=== PATIENT | male | born 1955 | race Caucasian/White ===

== ENCOUNTER 2020-10-10 11:54 | Day surgery (SDC) | payer OTHER ==
[2020-10-10] MEDS ORDERED: Propofol 200 MG/20 ML SDV ONE ×2 (13:41→14:35)
[2020-10-10] MEDS ORDERED: fentaNYL 100 MCG/2 ML SDV ONE (13:41)
[2020-10-10] MEDS ORDERED: Midazolam 1 MG/ML 2 ML SDV ONE (13:41)
[2020-10-10] MEDS ORDERED: Sodium Chloride 0.9% 20 ML ONE (14:07)
[2020-10-10] MEDS ORDERED: ceFAZolin 1 GM Vial ONE (14:07)
[2020-10-10] MEDS ORDERED: Iopamidol 408 MG/ML 20 ML SDV ONE (14:38)
[2020-10-10] MEDS ORDERED: Ketorolac 30 MG/ML SDV ONE (15:07)
--- NOTE | 2020-10-10 15:45 | PCM.POSTAN ---
POST ANESTHESIA ASSESSMENT - MENTAL STATUS Mental Status: Alert - VITAL SIGNS Vital Signs: Last Vital Signs Temp 38.7 C H 10/10/20 15:06 Pulse 78 10/10/20 15:26 Resp 20 10/10/20 15:26 BP 123/68 10/10/20 15:26 Pulse Ox 94 L 10/10/20 15:26 - RESPIRATORY Respiratory Status: Respiratory Rate WNL - CARDIOVASCULAR CV Status: Pulse Rate WNL - GASTROINTESTINAL GI Status: No Symptoms - POST OP HYDRATION Hydration Status: Adequate & Stable
--- NOTE | 2020-10-10 16:23 | OR ---
SURGEON: Renard Hu M.D. DATE OF PROCEDURE: 10/10/2020 PREOPERATIVE DIAGNOSES: A 9 mm left upper ureteral stone with obstruction and urinary tract infection. POSTOPERATIVE DIAGNOSES: A 9 mm left upper ureteral stone with obstruction and urinary tract infection. HISTORY: A 65-year-old. He has been treated for a UTI. He had a CT scan that showed a 9 mm stone. The culture was positive and the bacteria was sensitive to Cipro. He has been on Cipro these last few days. This all started 5 days ago. He was transferred here today. I reviewed his CT scan and his lab work. I decided to do cystoscopy with a double-J stent in and let the infection settle down and then treat the stone. Along the way, he had a blood culture that was also positive. DESCRIPTION OF PROCEDURE: The patient was given adequate sedation. He was placed in dorsal lithotomy position, prepped and draped in sterile drapes. Cystourethroscopy was done. The bladder was normal. 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 A guidewire was advanced in the left ureter alongside the stone all the up into the renal pelvis over which a 6-Croatian 26 cm double-J stent was placed. Position was confirmed with fluoroscopy, the bladder was emptied, and the patient was moved to recovery room in good condition. PLAN: He will be coming back this coming , in 5 days, for ESWL. The hydronephrotic drip was not excessive and it was surprisingly clear considering the history. The patient remained stable, and because of that, I gave him a dose of tobramycin 240 mg IV preop expecting more purulent discharge from the renal pelvis. He also had Ancef preop. He will be sent home to continue on the Cipro that he was taking until he comes back for his next procedure. [place] / KRISTI /[id number]
--- NOTE | 2020-10-11 07:19 | PCM.PREANE ---
Preanesthetic Assessment - Anesthesia/Transfusion/Family Hx Anesthesia History: Prior Anesthesia Without Reaction Family History of Anesthesia Reaction: No - Review of Systems General: No Symptoms Pulmonary: No Symptoms Cardiovascular: No Symptoms Gastrointestinal: Abdominal Pain Neurological: No Symptoms Other: Reports: None - Physical Assessment NPO Status Date: 10/11/20 NPO Status Time: 08:00 Vital Signs: Last Vital Signs Temp 37.1 C 10/10/20 16:00 Pulse 72 10/10/20 16:00 Resp 18 10/10/20 16:00 BP 125/65 10/10/20 16:00 Pulse Ox 94 L 10/10/20 15:26 Height: 1.83 m Weight: 99.79 kg ASA Class: 2E - Allergies Allergies/Adverse Reactions: Allergies Allergy/AdvReac Type Severity Reaction Status Date / Time No Known Allergies Allergy Verified 10/10/20 13:41 - Acknowledgements Anesthesia Type Planned: MAC Pt an Appropriate Candidate for the Planned Anesthesia: Yes Alternatives and Risks of Anesthesia Discussed w Pt/Guardian: Yes Pt/Guardian Understands and Agrees with Anesthesia Plan: Yes PreAnesthesia Questionnaire Cardiovascular History: Reports: High Cholesterol, Hypertension - Infectious Disease History Infectious Disease History: Reports: Chicken Pox - Past Surgical History Cardiovascular Surgical History: Reports: None - SUBSTANCE USE Tobacco Use Status *Q: Heavy Tobacco User Tobacco Use Within Last Twelve Months: Cigarettes Second Hand Smoke Exposure: No Recreational Drug Use History: No - HOME MEDS Home Medications: Home Meds . [No Known Home Meds] 10/10/20 [History] - CURRENT (IN HOUSE) MEDS Current Meds: Current Medications Discontinued Medications Cefazolin Sodium (Ancef) Confirm Administered Dose 2 gm .ROUTE .STK-MED ONE Stop: 10/10/20 14:08 Fentanyl (Sublimaze) Confirm Administered Dose 100 mcg .ROUTE .STK-MED ONE Stop: 10/10/20 13:42 Sodium Chloride (Normal Saline) Confirm Administered Dose 20 mls @ as directed .ROUTE .STK-MED ONE Stop: 10/10/20 14:08 Iopamidol (Isovue-M 200 (41%)) Confirm Administered Dose 20 ml .ROUTE .STK-MED ONE Stop: 10/10/20 14:39 Ketorolac Tromethamine (Toradol) Confirm Administered Dose 30 mg .ROUTE .STK-MED ONE Stop: 10/10/20 15:08 Midazolam HCl (Versed 1 Mg/Ml) Confirm Administered Dose 2 mg .ROUTE .STK-MED ONE Stop: 10/10/20 13:42 Propofol (Diprivan 20 Ml) Confirm Administered Dose 400 mg .ROUTE .STK-MED ONE Stop: 10/10/20 13:42 Propofol (Diprivan 20 Ml) Confirm Administered Dose 200 mg .ROUTE .STK-MED ONE Stop: 10/10/20 14:36
--- NOTE | 2020-10-11 07:20 | PCM48HPAN ---
Post Anesthesia Note - EVALUATION WITHIN 48HRS OF ANESTHETIC Vital Signs in Normal Range: Yes Patient Participated in Evaluation: Yes Respiratory Function Stable: Yes Airway Patent: Yes Cardiovascular Function Stable: Yes Hydration Status Stable: Yes Pain Control Satisfactory: Yes Nausea and Vomiting Control Satisfactory: Yes Mental Status Recovered: Yes Vital Signs: Last Vital Signs Temp 37.1 C 10/10/20 16:00 Pulse 72 10/10/20 16:00 Resp 18 10/10/20 16:00 BP 125/65 10/10/20 16:00 Pulse Ox 94 L 10/10/20 15:26
--- NOTE | 2020-10-11 13:53 | CONS ---
DATE OF CONSULTATION: 10/10/2020 DATE OF : 1955 PRIMARY CARE PHYSICIAN: Not In Area PCP HISTORY OF PRESENT ILLNESS: A 65-year-old. He was seen in the emergency room. Apparently, he has had left flank pain for a better part of a week. He was initially seen in [place]. He had a CT that showed a 9 mm left upper ureteral stone with obstruction. Eventually, he had a blood culture that was positive. He has been on Cipro. He was seen earlier in the ER in [place] and was transferred here. MEDICAL HISTORY: High cholesterol for which he takes Crestor. PAST SURGICAL HISTORY: Includes radical prostatectomy about 10 years ago. PHYSICAL EXAMINATION: GENERAL: He is alert. He is oriented. He is a smoker. HEART: Normal sinus rhythm. LUNGS: Clear. ABDOMEN: Tenderness over the left side and the left CVA. DATA: White blood count in [place] was normal, done earlier today. I reviewed his CT scan. There is a 9 mm stone in the left upper ureter just below the left UPJ. There is a 4 mm stone in the left lower pole of calyx. The right kidney has no stones. PLAN: Cysto with double-J stent placement today, ESWL later. [place] / KRISTI /[id number]
--- NOTE | 2020-10-11 15:04 | CR ---
Indication: Left ureter stent placement. Technique: A single intraoperative view of the abdomen was obtained. Comparison: None Findings: A single image demonstrates a left ureteral stent. Impression: Intraoperative image. Dictated by Jaci Gonsalves MD @ Oct 11 2020 3:03PM Signed by Dr. Jaci Gonsalves @ Oct 11 2020 3:03PM
--- NOTE | 2020-10-14 13:54 | PCM.PREANE ---
Preanesthetic Assessment - Anesthesia/Transfusion/Family Hx Anesthesia History: Prior Anesthesia Without Reaction Family History of Anesthesia Reaction: No - Review of Systems Gastrointestinal: Abdominal Pain - Physical Assessment NPO Status Date: 10/10/20 NPO Status Time: 08:00 Vital Signs: Last Vital Signs Temp 36.1 C 10/10/20 12:07 Pulse 76 10/10/20 12:07 Resp 18 10/10/20 12:07 BP 128/54 L 10/10/20 12:07 Pulse Ox 100 10/10/20 12:07 ASA Class: 2E - Lab Values: Laboratory Last Values SARS-CoV-2 RNA (JAMES) NEGATIVE (NEGATIVE) 10/10/20 12:00 - Allergies Allergies/Adverse Reactions: Allergies Allergy/AdvReac Type Severity Reaction Status Date / Time No Known Allergies Allergy Verified 10/13/20 09:50 - Acknowledgements Anesthesia Type Planned: MAC Pt an Appropriate Candidate for the Planned Anesthesia: Yes Alternatives and Risks of Anesthesia Discussed w Pt/Guardian: Yes Pt/Guardian Understands and Agrees with Anesthesia Plan: Yes PreAnesthesia Questionnaire - HOME MEDS Home Medications: Home Meds Amoxicillin/Clavulanate K [Augmentin 875-125 MG] 1 tab PO BID 7 Days #14 tablet 10/13/20 [Rx] Ciprofloxacin HCl [Cipro] 1 tab PO BID 10/13/20 [History] Omeprazole 1 tab PO DAILY 10/13/20 [History] Rosuvastatin [Crestor] 20 mg PO DAILY 10/13/20 [History] - CURRENT (IN HOUSE) MEDS Current Meds: Current Medications Lactated Ringer's (Ringers, Lactated) 1,000 mls @ 150 mls/hr IV ASDIRECTED JEMAL Sodium Chloride (Saline Flush) 10 ml FLUSH ASDIRECTED PRN PRN Reason: Keep Vein Open Sodium Chloride (Saline Flush) 2.5 ml FLUSH ASDIRECTED PRN PRN Reason: Keep Vein Open Sodium Chloride (Normal Saline) 10 ml IV ASDIRECTED PRN PRN Reason: IV Use Tobramycin (Nebcin) 240 mg IV ONETIME ONE Stop: 10/10/20 13:13
== END 2020-10-10 14:15 | disposition still patient (30) ==
LOC: MW.ED 11:54 → MW.SDS 11:54 → UNDOADMOB 13:10 → MW.MS 13:10 → MW.ED 13:29 → UNDODISOB 16:11
PROVIDERS: ATTEND Urology
DX: N20.1 Calculus of ureter (principal); N39.0 Urinary tract infection, site not specified; E78.00 Pure hypercholesterolemia, unspecified; I10 Essential (primary) hypertension; F17.210 Nicotine dependence, cigarettes, uncomplicated; Z98.890 Other specified postprocedural states
CPT/HCPCS: 52332; C1769; C2617; J0690; J1885; J2250; J2704; J3010; Q9966

== ENCOUNTER 2020-10-13 09:36 | Emergency (ER) | payer OTHER ==
--- NOTE | 2020-10-13 09:54 | EDM.PDOC ---
ED HPI GENERAL MEDICAL PROBLEM - General Chief Complaint: Genitourinary Problem Stated Complaint: POSSIBLE KIDNEY STONES Time Seen by Provider: 10/13/20 09:39 Source of Information: Reports: Patient, RN Notes Reviewed - History of Present Illness INITIAL COMMENTS - FREE TEXT/NARRATIVE: 65-year-old male past medical history renal stone being followed by urologist presents for fevers, chills, diaphoresis. Patient notes that he has had pain in his left flank radiating to his groin for about the last 10 days. He has been in and out of an outside hospital roughly 6 times for this. He has been diagnosed with a kidney stone and is being followed by urologist. On Monday he had a stent placed and was given IV antibiotics. He is also on oral Cipro at home. He woke up last night with chills, shakes, diaphoresis, subjective fever. He notes continued pain in his back and abdomen. Nausea. left lower abdomen Pain Score (Numeric/FACES): 5 - Related Data Allergies Allergy/AdvReac Type Severity Reaction Status Date / Time No Known Allergies Allergy Verified 10/13/20 09:50 Home Meds: Home Meds Amoxicillin/Clavulanate K [Augmentin 875-125 MG] 1 tab PO BID 7 Days #14 tablet 10/13/20 [Rx] Ciprofloxacin HCl [Cipro] 1 tab PO BID 10/13/20 [History] Omeprazole 1 tab PO DAILY 10/13/20 [History] Rosuvastatin [Crestor] 20 mg PO DAILY 10/13/20 [History] Past Medical History Cardiovascular History: Reports: High Cholesterol, Hypertension - Infectious Disease History Infectious Disease History: Reports: Chicken Pox - Past Surgical History Cardiovascular Surgical History: Reports: None Social & Family History - Family History Family Medical History: No Pertinent Family History - Caffeine Use Caffeine Use: Reports: Soda ED ROS GENERAL - Review of Systems Review Of Systems: Comprehensive ROS is negative, except as noted in HPI. ED EXAM, GENERAL - Physical Exam Exam: See Below Exam Limited By: No Limitations General Appearance: Alert, WD/WN, No Apparent Distress Throat/Mouth: Normal Voice, No Airway Compromise Head: Atraumatic, Normocephalic Respiratory/Chest: No Respiratory Distress, Lungs Clear, Normal Breath Sounds, No Accessory Muscle Use Cardiovascular: Normal Peripheral Pulses, Regular Rate, Rhythm GI/Abdominal: Soft, Non-Tender Back Exam: No: CVA Tenderness (L), CVA Tenderness (R) Extremities: Normal Inspection Neurological: Alert Psychiatric: Normal Affect, Normal Mood Skin Exam: Warm, Dry, Intact, Normal Color #1 Interpretation EKG Date: 10/13/20 Time: 09:54 Rhythm: NSR Rate (Beats/Min): 61 [place]: Normal P-Wave: Present QRS: Normal ST-T: Normal QT: Normal IL/PQ Interval: 169 EKG Interpretation Comments: no ischemic changes Course - Vital Signs Last Recorded V/S: Last Vital Signs Temp 97.2 F 10/13/20 09:46 Pulse 60 10/13/20 09:46 Resp 20 10/13/20 09:46 BP 126/77 10/13/20 09:46 Pulse Ox 98 10/13/20 09:46 - Orders/Labs/Meds Orders: Active Orders 24 hr Category Date Time Status Cardiac Monitoring [RC] . DIRECTED Care 10/13/20 09:56 Active Pulse Oximetry [RC] ASDIRECTED Care 10/13/20 09:56 Active CULTURE BLOOD [BC] Stat Lab 10/13/20 09:55 Received CULTURE BLOOD [BC] Stat Lab 10/13/20 10:20 Received Sodium Chloride 0.9% [Saline Flush] Med 10/13/20 09:56 Active 10 ml FLUSH ASDIRECTED PRN Sodium Chloride 0.9% [Saline Flush] Med 10/13/20 09:56 Active 2.5 ml FLUSH ASDIRECTED PRN Blood Culture x2 Reflex Set [OM.PC] Stat Oth 10/13/20 09:57 Ordered Saline Lock Insert [OM.PC] Stat Oth 10/13/20 09:56 Ordered Labs: Laboratory Tests 10/13/20 10/13/20 10/13/20 Range/Units 09:55 09:55 09:55 WBC 10.65 (4.0-11.0) K/uL RBC 4.25 L (4.50-5.90) M/uL Hgb 13.5 (13.0-17.0) g/dL Hct 39.7 (38.0-50.0) % MCV 93.4 (80.0-98.0) fL MCH 31.8 (27.0-32.0) pg MCHC 34.0 (31.0-37.0) g/dL RDW Std Deviation 45.6 (28.0-62.0) fl RDW Coeff of Cristhian 13 (11.0-15.0) % Plt Count 404 H (150-400) K/uL MPV 9.30 (7.40-12.00) fL Add Manual Diff YES Neutrophils % (Manual) 76 (48.0-80.0) % Band Neutrophils % 1 % Lymphocytes % (Manual) 16 (16.0-40.0) % Monocytes % (Manual) 4 (0.0-15.0) % Metamyelocytes % 1 % Myelocytes % 2 % Nucleated RBC % 0.0 /100WBC Absolute Seg Neuts 8.1 H (1.4-5.7) Band Neutrophils # 0.1 Lymphocytes # (Manual) 1.7 (0.6-2.4) Monocytes # (Manual) 0.4 (0.0-0.8) Absolute Metamyelocyte 0.1 Absolute Myelocytes 0.2 Nucleated RBCs # 0 K/uL Lactate 1.4 (0.20-2.00) mmol/L Sodium 138 (136-148) mmol/L Potassium 3.7 (3.5-5.1) mmol/L Chloride 102 (98-107) mmol/L Carbon Dioxide 26.4 (21.0-32.0) mmol/L BUN 15 (7.0-18.0) mg/dL Creatinine 1.2 (0.8-1.3) mg/dL Est Cr Clr Drug Dosing 78.38 mL/min Estimated GFR (MDRD) > 60.0 ml/min Glucose 113 H (74-106) mg/dL Calcium 9.1 (8.5-10.1) mg/dL Magnesium 2.2 (1.8-2.4) mg/dL Total Bilirubin 0.8 (0.2-1.0) mg/dL AST 28 (15-37) IU/L ALT 63 (14-63) IU/L Alkaline Phosphatase 126 H (46-116) U/L Troponin I < 0.050 (0.000-0.056) ng/mL Total Protein 8.1 (6.4-8.2) g/dL Albumin 2.9 L (3.4-5.0) g/dL Globulin 5.2 H (2.6-4.0) g/dL Albumin/Globulin Ratio 0.6 L (0.9-1.6) Urine Color Urine Appearance Urine pH (5.0-8.0) Ur Specific Rock (1.001-1.035) Urine Protein (NEGATIVE) mg/dL Urine Glucose (UA) (NEGATIVE) mg/dL Urine Ketones (NEGATIVE) mg/dL Urine Occult Blood (NEGATIVE) Urine Nitrite (NEGATIVE) Urine Bilirubin (NEGATIVE) Urine Urobilinogen (<2.0) EU/dL Ur Leukocyte Esterase (NEGATIVE) Urine RBC (0-2/HPF) Urine WBC (0-5/HPF) Ur Epithelial Cells (NONE-FEW) Urine Bacteria (NEGATIVE) 10/13/20 Range/Units 10:35 WBC (4.0-11.0) K/uL RBC (4.50-5.90) M/uL Hgb (13.0-17.0) g/dL Hct (38.0-50.0) % MCV (80.0-98.0) fL MCH (27.0-32.0) pg MCHC (31.0-37.0) g/dL RDW Std Deviation (28.0-62.0) fl RDW Coeff of Cristhian (11.0-15.0) % Plt Count (150-400) K/uL MPV (7.40-12.00) fL Add Manual Diff Neutrophils % (Manual) (48.0-80.0) % Band Neutrophils % % Lymphocytes % (Manual) (16.0-40.0) % Monocytes % (Manual) (0.0-15.0) % Metamyelocytes % % Myelocytes % % Nucleated RBC % /100WBC Absolute Seg Neuts (1.4-5.7) Band Neutrophils # Lymphocytes # (Manual) (0.6-2.4) Monocytes # (Manual) (0.0-0.8) Absolute Metamyelocyte Absolute Myelocytes Nucleated RBCs # K/uL Lactate (0.20-2.00) mmol/L Sodium (136-148) mmol/L Potassium (3.5-5.1) mmol/L Chloride (98-107) mmol/L Carbon Dioxide (21.0-32.0) mmol/L BUN (7.0-18.0) mg/dL Creatinine (0.8-1.3) mg/dL Est Cr Clr Drug Dosing mL/min Estimated GFR (MDRD) ml/min Glucose (74-106) mg/dL Calcium (8.5-10.1) mg/dL Magnesium (1.8-2.4) mg/dL Total Bilirubin (0.2-1.0) mg/dL AST (15-37) IU/L ALT (14-63) IU/L Alkaline Phosphatase (46-116) U/L Troponin I (0.000-0.056) ng/mL Total Protein (6.4-8.2) g/dL Albumin (3.4-5.0) g/dL Globulin (2.6-4.0) g/dL Albumin/Globulin Ratio (0.9-1.6) Urine Color YELLOW Urine Appearance SLT CLOUDY Urine pH 6.0 (5.0-8.0) Ur Specific Rock <= 1.005 (1.001-1.035) Urine Protein NEGATIVE (NEGATIVE) mg/dL Urine Glucose (UA) NEGATIVE (NEGATIVE) mg/dL Urine Ketones NEGATIVE (NEGATIVE) mg/dL Urine Occult Blood LARGE H (NEGATIVE) Urine Nitrite NEGATIVE (NEGATIVE) Urine Bilirubin NEGATIVE (NEGATIVE) Urine Urobilinogen 0.2 (<2.0) EU/dL Ur Leukocyte Esterase SMALL H (NEGATIVE) Urine RBC 3-5 (0-2/HPF) Urine WBC 1-4 (0-5/HPF) Ur Epithelial Cells FEW (NONE-FEW) Urine Bacteria FEW (NEGATIVE) - Re-Assessments/Exams Free Text/Narrative Re-Assessment/Exam: 10/13/20 10:18 We will get labs including blood cultures. Likely infection secondary to infected kidney stone. We will follow up results and reach out to urologist for dispel recommendations. 10/13/20 11:[address] Hu who agreed with Tricia. Family is uncomfortable with f/u. Wants to go back to [place]. I spoke with their urologist Dr. Jeffries who will see patient morning in [place]. Will d/c with augmentin for gram positive coverage. Departure - Departure Time of Disposition: 11:44 Disposition: Home, Self-Care 01 Condition: Good Clinical Impression: Kidney stone - Discharge Information Prescriptions: Amoxicillin/Clavulanate K [Augmentin 875-125 MG] 1 tab PO BID 7 Days #14 tablet Referrals: Jennie Cortes MD [Primary Care Provider] - Forms: ED Department Discharge Additional Instructions: Follow-up with your urologist on morning. The following information is given to patients seen in the emergency department who are being discharged to home. This information is to outline your options for follow-up care. We provide all patients seen in our emergency department with a follow-up referral. The need for follow-up, as well as the timing and circumstances, are variable depending upon the specifics of your emergency department visit. If you don't have a primary care physician on staff, we will provide you with a referral. We always advise you to contact your personal physician following an emergency department visit to inform them of the circumstance of the visit and for follow-up with them and/or the need for any referrals to a consulting specialist. The emergency department will also refer you to a specialist when appropriate. This referral assures that you have the opportunity for follow-up care with a specialist. All of these measure are taken in an effort to provide you with optimal care, which includes your follow-up. Under all circumstances we always encourage you to contact your private physician who remains a resource for coordinating your care. When calling for follow-up care, please make the office aware that this follow-up is from your recent emergency room visit. If for any reason you are refused follow-up, please contact the [facility] Emergency Department at and asked to speak to the emergency department charge nurse. Please follow up with your primary care physician. If you do not have a primary care physician, see below: [facility] [address] [place] [id number] [facility] [address] [place] [id number] [facility] [address] [place] [id number] Sepsis Event Note (ED) - Evaluation Sepsis Screening Result: No Definite Risk - Focused Exam Vital Signs: Vital Signs Temp Pulse Resp BP Pulse Ox 10/13/20 09:46 97.2 F 60 20 126/77 98 - My Orders Last 24 Hours: My Active Orders 10/13/20 09:55 CULTURE BLOOD [BC] Stat 10/13/20 09:56 Cardiac Monitoring [RC] . DIRECTED Pulse Oximetry [RC] ASDIRECTED Sodium Chloride 0.9% [Saline Flush] 10 ml FLUSH ASDIRECTED PRN Sodium Chloride 0.9% [Saline Flush] 2.5 ml FLUSH ASDIRECTED PRN Saline Lock Insert [OM.PC] Stat 10/13/20 09:57 Blood Culture x2 Reflex Set [OM.PC] Stat 10/13/20 10:20 CULTURE BLOOD [BC] Stat - Assessment/Plan Last 24 Hours: My Active Orders 10/13/20 09:55 CULTURE BLOOD [BC] Stat 10/13/20 09:56 Cardiac Monitoring [RC] . DIRECTED Pulse Oximetry [RC] ASDIRECTED Sodium Chloride 0.9% [Saline Flush] 10 ml FLUSH ASDIRECTED PRN Sodium Chloride 0.9% [Saline Flush] 2.5 ml FLUSH ASDIRECTED PRN Saline Lock Insert [OM.PC] Stat 10/13/20 09:57 Blood Culture x2 Reflex Set [OM.PC] Stat 10/13/20 10:20 CULTURE BLOOD [BC] Stat
[2020-10-13] MEDS ORDERED: Sodium Chloride 0.9% 1,000 ML IV ONE (09:56)
[2020-10-13] MEDS ORDERED: Sodium Chloride 0.9% 10 ML Syringe FLUSH PRN (09:56)
[2020-10-13] MEDS ORDERED: Sodium Chloride 0.9% 2.5 ML Syringe FLUSH PRN (09:56)
[2020-10-13] MEDS ORDERED: Piperacillin/Tazobactam 3.375 GM in Sodium Chloride 0.9% 50 ML IV ONE (10:18)
[2020-10-13 10:36] LABS: BLOOD UREA NITROGEN,BUN 15 mg/dL (7.0-18.0); CARBON DIOXIDE,CO2 26.4 mmol/L (21.0-32.0); CHLORIDE,CL 102 mmol/L (98-107); GLUCOSE RANDOM 113 mg/dL (74-106); POTASSIUM,K 3.7 mmol/L (3.5-5.1); SODIUM,NA 138 mmol/L (136-148)
== END 2020-10-13 12:00 | disposition home or self-care (01) ==
LOC: MW.ED 09:36
DX: N20.0 Calculus of kidney (principal); I10 Essential (primary) hypertension; E78.00 Pure hypercholesterolemia, unspecified; Z79.899 Other long term (current) drug therapy
CPT/HCPCS: 80053; 81001; 83605; 83735; 84484; 85025; 87040; 93005; 96365; 99284; J2543; J7030; 93010; 99283